=== PATIENT | male | born 1965 ===

== ENCOUNTER 2021-10-04 20:06 | Emergency (ER) | payer OTHER, BC ==
[2021-10-04] MEDS ORDERED: Ketorolac 30 MG/ML SDV IM ONE (20:21)
--- NOTE | 2021-10-04 20:31 | EDM.PDOC ---
ED HPI GENERAL MEDICAL PROBLEM - General Chief Complaint: Back Pain or Injury Stated Complaint: back pain Time Seen by Provider: 10/04/21 20:15 Source of Information: Reports: Patient, RN Notes Reviewed History Limitations: Reports: No Limitations - History of Present Illness INITIAL COMMENTS - FREE TEXT/NARRATIVE: This patient presents to the emergency department for evaluation of back pain. He states that he has had back pain for the past 2 weeks and recently had an MRI identifying some disc issue at L3-L5. He has been treated with a nerve pain and a muscle relaxant neither of which he feels are working. He is from [facility] and has been here fishing and tonight states the pain is too bad to tolerate. He states neither of these medications have been helping and the only thing that has helped him his oxycodone. He states he had that from a previous prescription and tried it. He rates his pain at a 12 on the 1-10 scale. He denies fever, cough, chest pain, difficulty breathing, nausea, vomiting. ED ROS GENERAL - Review of Systems Review Of Systems: Comprehensive ROS is negative, except as noted in HPI. ED EXAM,LOWER BACK PAIN/INJURY - Physical Exam Exam: See Below Exam Limited By: No Limitations General Appearance: Alert, No Apparent Distress Eye Exam: Bilateral Eye: EOMI, Normal Inspection, PERRL Ears: Normal External Exam Nose: Normal Inspection Head: Atraumatic, Normocephalic Neck: Normal Inspection, Full Range of Motion Respiratory/Chest: No Respiratory Distress, Lungs Clear, Normal Breath Sounds, No Accessory Muscle Use Back Exam: Normal Inspection, Paraspinal Tenderness (Left lateral lumbar spine), Other (Tenderness with palpation following the left branch of the sciatic nerve down left buttock and into the left thigh. No distal numbness or tingling. Distal CMS intact.). No: CVA Tenderness (L) Extremities: Normal Inspection, Leg Pain, Limited Range of Motion Neurological: Alert Skin Exam: Warm, Dry, Intact Course - Orders/Labs/Meds Meds: Medications Discontinued Medications Generic Name Dose Route Start Last Admin Trade Name Freq PRN Reason Stop Dose Admin Ketorolac Tromethamine 60 mg 10/04/21 20:21 Ketorolac 30 Mg/Ml Sdv IM 10/04/21 20:22 ONETIME ONE - Re-Assessments/Exams Free Text/Narrative Re-Assessment/Exam: This patient presents to the emergency department for evaluation of back pain. He has a history of back pain for the past month and has had a recent MRI. He was given Toradol in the ED for this pain he states that the medications as he has been on at home have not helped. He did not sustain any trauma while he has been here, therefore x-rays are not necessary due to the low likelihood of fracture or subluxation. He has recently had advanced imaging and is scheduled to see a neurologist in [place] in the coming days. There is no evidence of a fever, saddle or perineal anesthesia. Bilateral foot numbness or bowel or bladder dysfunction. There is no clinical evidence of cauda equina syndrome, discitis, spinal or epidural space hematoma or epidural abscess. His neurologic exam is grossly normal with the exceptions of the pain noted. He was advised that the pain often takes significant time to resolve and he needs to follow-up with his primary care provider tomorrow. He will be discharged with a limited number of Percocet tablets to be used as directed. He was reminded to avoid heavy lifting, bending, twisting. The patient was stable at the time of discharge. 10/04/21 20:37 Departure - Departure Time of Disposition: 20:40 Disposition: [facility] 05 Condition: Good Clinical Impression: Lumbar back pain with radiculopathy affecting left lower extremity - Discharge Information Referrals: PCP,None [Primary Care Provider] - Forms: ED Department Discharge
[2021-10-04] MEDS ORDERED: Acetaminophen/oxyCODONE 325-5 MG Tab ONE (23:50)
[2021-10-05 01:51] VITALS: BP 159/90; PULSE 86
== END 2021-10-04 20:41 | disposition home or self-care (01) ==
LOC: LB.ED 20:06
DX: M54.16 Radiculopathy, lumbar region (principal)
CPT/HCPCS: 96372; 99284; A9270-GY; J1885